=== PATIENT | male | born 1965 | race Caucasian/White ===

== ENCOUNTER → 2021-05-03 | Emergency (ER) | payer OTHER ==
[~2021-05-03] VITALS: Ht 182.9 cm; Wt 90.7 kg
[~2021-05-03] MED LIST: BUPROPION XL150 MG; ESCITALOPRA5 MG/5 ML; PLAVIX75 MG; ROSUVASTATIN CA40 MG; TOPROL XL50 M1; ZESTRIL20 MG
== END | disposition home or self-care (01) ==
LOC: ER 14:17 → CPU-OBS 14:39
DX: R07.89 Other chest pain (principal)

== ENCOUNTER 2022-12-14 02:46 | Emergency (ER) | payer BC ==
[~2022-12-14] VITALS: Ht 182.9 cm; Wt 99.8 kg
[2022-12-14] MEDS ORDERED: KAPVAY0.1 MG (03:29)
== END 2022-12-14 10:38 | disposition home or self-care (01) ==
LOC: ER 02:46
DX: R07.9 Chest pain, unspecified (principal); I10 Essential (primary) hypertension

== ENCOUNTER 2023-01-18 23:33 | Emergency (ER) | payer BC ==
[~2023-01-18] VITALS: Ht 182.9 cm; Wt 97.5 kg
[~2023-01-18 23:33] MED LIST changes: +KAPVAY0.1 MG
[2023-01-18] MEDS ORDERED: TOPROL XL50 M1 (23:44)
[2023-01-18] MEDS ORDERED: PLAVIX75 MG (23:44)
[2023-01-18] MEDS ORDERED: ZESTRIL40 M1 (23:44)
[2023-01-18] MEDS ORDERED: TESTIM5 GM (23:45)
[2023-01-18] MEDS ORDERED: CRESTOR40 MG PO (23:45)
[2023-01-18] MEDS ORDERED: BUPROPION XL150 MG PO (23:45)
[2023-01-19] MEDS ORDERED: LIPITOR40 M1 PO (10:01)
[2023-01-19] MEDS ORDERED: PLAVIX75 MG PO (10:02)
[2023-01-19] MEDS ORDERED: KAPSPARGO SPRIN50 MG PO (10:02)
== END 2023-01-19 15:21 | disposition home or self-care (01) ==
LOC: ER 23:33
DX: R10.13 Epigastric pain (principal); K76.0 Fatty (change of) liver, not elsewhere classified